=== PATIENT | male | born 1985 | race Caucasian/White ===

== ENCOUNTER 2020-10-06 18:47 | Emergency (ER) | payer SELFPAY ==
[~2020-10-06] VITALS: Ht 172.7 cm; Wt 74.8 kg
--- NOTE | 2020-10-06 18:53 | NUR ---
CALLED FOR PT IN LOBBY, NO ANSWER
[2020-10-06 19:01] VITALS: BP 105/86
--- NOTE | 2020-10-06 19:03 | NUR ---
PT AMBULATED TO BED 06.
--- NOTE | 2020-10-06 19:36 | NUR ---
PT LWBS. AMBULATED OUT OF ROOM 6
[2020-10-08] MEDS ORDERED: ERYT5OIN58 OP (22:16)
== END 2020-10-06 19:36 | disposition left against medical advice (07) ==
LOC: MED 18:47
DX: H57.11 Ocular pain, right eye (principal); Z53.21 Procedure and treatment not carried out due to patient leaving prior to being seen by health care provider

== ENCOUNTER → 2020-10-08 | Emergency (ER) | payer SELFPAY ==
[~2020-10-08] VITALS: Ht 172.7 cm; Wt 66.7 kg
[~2020-10-08] MED LIST: ERYT5OIN58 OP
[2020-10-08 21:00] VITALS: BP 99/53
--- NOTE | 2020-10-08 21:15 | NUR ---
34 Y.O. MALE BIB SELF C/O RIGHT EYE REDNESS AND SWELLING. PT STATES HE BELIEVES HE GOT DUST IN HIS RIGHT EYE. DENIES BLURRY VISION OR PAIN. PT HAS MILD DISCOMFORT ON RIGHT EYE. PERRLA. DENIES ANY PMH. NKA. PT SITTING UPRIGHT IN BED AND STABLE.
--- NOTE | 2020-10-08 22:29 | NUR ---
Patient discharged with v/s stable. Written and verbal after care instructions given and explained. Patient alert, oriented and verbalized understanding of instructions. Ambulatory with steady gait. All questions addressed prior to discharge. ID band removed. Patient advised to follow up with PMD. Rx of ERYTHROMYCIN given. Patient educated on indication of medication including possible reaction and side effects. Opportunity to ask questions provided and answered.
[2020-10-08 22:30] VITALS: BP 99/53
== END | disposition home or self-care (01) ==
LOC: MED 20:43
DX: H01.001 Unspecified blepharitis right upper eyelid (principal)
CPT/HCPCS: 99283